=== PATIENT | male | born 2000 | race Hispanic/Latino ===

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

== ENCOUNTER 2024-06-04 10:32 | Emergency (ER) | payer SELFPAY ==
--- OUTSIDE RECORDS SUMMARY | 2024-06-04 10:35 | XMS REPORT | Continuity of Care Document ---
Author Name Unknown Address [address] [facility] [address] [place] [address] [facility] Address [address] [facility] [address] [place] [address] Care Team Providers Care Banquet Kitchen Supervisor Name Role Phone PCP, PATIENT DOES NOT HAVE A Primary Care Physic ambrosio Unavailable JUNG COPELAND Attending Clinician UnavailIMTIAZ Man Attending Clinician Unavailable Imtiaz Green MD Attending Clinician [phone] HAYDEE RICO Attending Clinician Unavailable Navin Phan MD Attending Clinician [phone] Karen Ann MD Attending Clinician [phone] KAREN ANN Attending Clinician Unavailable SERA PERKINS Attending Clinician UnavailSera Fowler MD Attending Clinician [phone] Only, Adc Test Attending Clinician Unavailable Jung Copeland MD Attending Clinician [phone] Doctor Unassigned, [place] Attending Clinician Carmine Cavanaugh Attending Clinician [phone] CARMINE SPARKS Attending Clinician Unavailable JUNG COPELAND Admitting Clinician UnavailIMTIAZ Man Admitting Clinician Unavailable Payers Payer Name Policy Type Policy Number Effective Date Expirati on Date Source [facility] [id number] 2020 00:00:00 Problems Condition Name Condition Details Condition Category Status Onset Date Resolution Date Last Treatment Date Treating Clinician Comments Source Rupture of anterior cruciate ligament of left knee, initial encounter Rupture of anterior cruciate ligament of left knee, initial encounter Disease Active 12-24 00:00: 00 Overview: Formattin g of this note might be different from the original. Added automatic ally from request for surgery [id number] [facility] Allergies, Adverse Reactions, Alerts Allergy Name Allergy Type Status Severity Reaction(s) Onset Date Inactive Date Treating Clinician Comments Source NO KNOWN ALLERGIE S Drug Class Active [facility] Social History Social Habit Start Date Stop Date Quantity Comments Source History SDOH Alcohol Comment [place] [facility] Alcohol Std Drinks [facility] History SDOH Alcohol Binge [facility] Alcoholic beverage intake 2023-09-27 00:00:00 2023-09-27 00:00:00 Lifetime non-drinker (finding) [facility] Exposure to SARS-CoV-2 (event) 2021-08-24 00:00:00 2021-09-03 15:00:00 Not sure [facility] History of Social function 2021-09-03 00:00:00 2021-09-03 00:00:00 [facility] Alcohol intake 2021-09-03 00:00:00 2021-09-03 00:00:00 Lifetime non-drinker (finding) [facility] Tobacco use and exposure 2020-10-22 00:00:00 2020-10-22 00:00:00 Smokeless tobacco non-user [facility] History SDOH Alcohol Frequency 2020-10-22 00:00:00 2020-10-22 00:00:00 1 [facility] Sex assigned at 2000 00:00:00 2000 00:00:00 [facility] Smoking Status Start Date Stop Date Source Never smoked tobacco [facility] Medications Ordered Medication Name Filled Medication Name Start Date Stop Date Current Medication? Ordering Clinician Indication Dosage Frequency Signature (SIG) Comments Components Source naproxen 500 mg tablet 09-03 00:00: 00 09-11 04:59 :00 No [id number] 500mg Take 1 tablet by mouth 2 (two) times daily with meals for 7 days. [facility] sulfamethox azole-trime thoprim (BACTRIM DS) 800-160 mg tablet 01-18 00:00: 00 Yes 1{tbl} Take 1 Tab by mouth every 12 (twelve) hours. [facility] Vital Signs Vital Name Observation Time Observation Value Comments S marialuisa Systolic blood pressure 2023-09-28 00:45:00 124 mm[Hg] [facility] Diastolic blood pressure 2023-09-28 00:45:00 81 mm[Hg] [facility] Heart rate 2023-09-28 00:45:00 69 /min [facility] Oxygen saturation in Arterial blood by Pulse oximetry 2023-09-28 00:45:00 100 /min [facility] Respiratory rate 2023-09-28 00:00:00 10 /min [facility] Body temperature 2023-09-27 22:25:00 37.17 Jessica [facility] Body height 2023-09-27 22:25:00 172.7 cm [facility] Body weight 2023-09-27 22:25:00 98.884 kg [facility] BMI 2023-09-27 22:25:00 33.15 kg/m2 [facility] Systolic blood pressure 2021-09-03 20:04:00 112 mm[Hg] [facility] Diastolic blood pressure 2021-09-03 20:04:00 74 mm[Hg] [facility] Heart rate 2021-09-03 20:04:00 67 /min [facility] Body temperature 2021-09-03 20:04:00 36.28 Jessica [facility] Respiratory rate 2021-09-03 20:04:00 18 /min [facility] Body height 2021-09-03 20:04:00 170.2 cm [facility] Body weight 2021-09-03 20:04:00 89.495 kg [facility] BMI 2021-09-03 20:04:00 30.90 kg/m2 [facility] Body mass index (BMI) [Percentile] Per age and sex 2021-09-03 20:04:00 96.44 % [facility] Oxygen saturation in Arterial blood by Pulse oximetry 2021-09-03 20:04:00 98 /min room air [facility] Procedures Procedure Date / Time Performed Performing Clinicia n Source CT CERVICAL SPINE WO CONTRAST 2023-09-27 22:59:00 Imtiaz Green [facility] CT HEAD WO CONTRAST 2023-09-27 22:59:00 Bartolo Green [facility] CBC WITH DIFF 2023-09-27 22:51:00 Imtiaz Green [facility] D-DIMER 2023-09-27 22:51:00 Imtiaz Green [facility] TROPONIN I 2023-09-27 22:51:00 Duran Imtiaz [facility] COMP. METABOLIC PANEL ([id number]) 2023-09-27 22:51:00 Imtiaz Green [facility] Encounters Start Date/Time End Date/Time Encounter Type Admission Type Attending Clinicians Care Facility Care Department Encounter ID Source 2021-03-10 11:45:38 Outpatient JUNG BYERS [facility] SOR [id number] [facility] 2021-03-09 16:23:27 Outpatient JUNG BYERS [facility] SOR [id number] [facility] 2021-03-06 14:12:40 Outpatient JUNG BYERS [facility] SOR [id number] [facility] 2023-09-27 17:25:00 2023-09-27 20:15:00 Emergency X IMTIAZ GREEN [facility] ERT [id number] [facility] 2023-09-27 17:25:00 2023-09-27 20:15:00 Emergency Imtiaz Green [facility] [id number] 350.1.13.10 4.2.7.2.686 [id number] [facility] 2022-02-23 11:10:00 2022-02-23 11:10:00 Outpatient HAYDEE WILLAMS [facility] [id number] [facility] 2021-09-03 15:30:00 2021-09-03 16:00:00 Office Visit Navin Phan [facility] [id number] 350.1.13.10 4.2.7.2.686 [id number] [facility] 2021-09-03 15:30:00 2021-09-03 15:30:00 Outpatient Liam ANN KAREN [facility] [id number] [facility] 2021-04-10 08:40:00 2021-04-10 08:40:00 Outpatient SERA KULKARNI [facility] [id number] [facility] 2021-04-10 08:05:54 2021-04-10 08:15:54 Office Visit Sera Perkins [facility] [id number] 350.1.13.10 4.2.7.2.686 [id number] [facility] 2021-03-13 09:30:00 2021-03-13 09:30:00 Outpatient JUNG BYERS [facility] [id number] [facility] 2021-03-06 14:17:13 2021-03-06 14:32:13 Laboratory Only Only, Adc Test Jung Copeland [facility] [id number] 350.1.13.10 4.2.7.2.686 [id number] [facility] 2021-03-06 08:45:00 2021-03-06 08:45:00 Outpatient JUNG BYERS [facility] [id number] [facility] 2021-03-02 00:00:00 2021-03-02 00:00:00 Prep For Surgery Jung Copeland [facility] [place] [id number] 350.1.13.10 4.2.7.2.686 [id number] [facility] 2021-03-02 00:00:00 2021-03-02 00:00:00 Telephone Jung Copeland [facility] [place] 1.84.114 350.1.13.10 4.2.7.2.686 [id number] [facility] 2021-02-20 09:41:09 2021-02-20 09:59:06 Office Visit Jung Copeland [facility] 1.840.114 350.1.13.10 4.2.7.2.686 [id number] [facility] 2021-02-20 09:45:00 2021-02-20 09:45:00 Outpatient R JUNG COPELAND [facility] [id number] [facility] 2021-02-20 00:00:00 2021-02-20 00:00:00 Orders Only Doctor Unassigned, [place] [facility] 1.840.114 350.1.13.10 4.2.7.2.686 [id number] [facility] 2021-02-19 08:45:00 2021-02-19 08:45:00 Outpatient R JUNG COPELAND [facility] [id number] [facility] 2021-02-12 00:00:00 2021-02-12 00:00:00 Telephone Jung Copeland [facility] [place] [id number] 350.1.13.10 4.2.7.2.686 [id number] [facility] 2021-01-05 00:00:00 2021-01-05 00:00:00 Telephone Jung Copeland [facility] [id number] 350.1.13.10 4.2.7.2.686 [id number] [facility] 2020-12-26 12:15:00 2020-12-26 12:15:00 Outpatient R JUNG COPELAND [facility] [id number] [facility] 2020-12-25 00:00:00 2020-12-25 00:00:00 Telephone Jung Copeland [facility] [id number] 350.1.13.10 4.2.7.2.686 [id number] [facility] 2020-12-24 00:00:00 2020-12-24 00:00:00 Orders Only Doctor Unassigned, [place] [facility] 1.2.840.114 350.1.13.10 4.2.7.2.686 [id number] [facility] 2020-12-22 00:00:00 2020-12-22 00:00:00 Orders Only Doctor Unassigned, [place] [facility] 1.2.840.114 350.1.13.10 4.2.7.2.686 [id number] [facility] 2020-12-18 10:43:34 2020-12-18 10:58:34 Office Visit Carmine Sparks [facility] 1.2.840.114 350.1.13.10 4.2.7.2.686 [id number] [facility] 2020-12-18 10:30:00 2020-12-18 10:30:00 Outpatient R CARMINE SPARKS [facility] [id number] [facility] 2020-12-18 00:00:00 2020-12-18 00:00:00 Orders Only Doctor Unassigned, [place] [facility] 1.2840.114 350.1.13.10 4.2.7.2.686 [id number] [facility] 2020-12-12 10:41:09 2020-12-12 12:12:19 Office Visit Jung Copeland [facility] 1.2840.114 350.1.13.10 4.2.7.2.686 [id number] [facility] 2020-12-12 10:45:00 2020-12-12 10:45:00 Outpatient R JUNG COPELAND [facility] [id number] [facility] 2020-12-08 00:00:00 2020-12-08 00:00:00 Telephone Carmine Sparks [facility] Surgical [facility] 1.2840.114 350.1.13.10 4.2.7.2.686 [id number] [facility] 2020-10-30 15:48:55 2020-10-30 23:59:00 Hospital Encounter Jung Copeland [facility] [id number] 350.1.13.10 4.2.7.2.686 [id number] [facility] 2020-10-30 00:00:00 2020-10-30 00:00:00 Outpatient R JUNG COPELAND [facility] [id number] [facility] 2020-10-29 00:00:00 2020-10-29 00:00:00 Orders Only Doctor Unassigned, [place] [facility] 1.20.114 350.1.13.10 4.2.7.2.686 [id number] [facility] 2020-10-23 00:00:00 2020-10-23 00:00:00 Telephone Imer Jung Warren [facility] Surgical [facility] [id number] 350.1.13.10 4.2.7.2.686 [id number] [facility] 2020-10-22 14:03:47 2020-10-22 14:18:47 Office Visit Carmine Sparks [facility] [id number] 350.1.13.10 4.2.7.2.686 [id number] [facility] 2020-10-22 14:15:00 2020-10-22 14:15:00 Outpatient R CARMINE SPARKS [facility] [id number] [facility] 2020-10-15 13:30:00 2020-10-15 13:30:00 Outpatient R JUNG COPELAND [facility] [id number] [facility] Results Test Description Test Time Test Comments Results Result Comments Source CT HEAD WO CONTRAST 23:51:39 EXAM: CT HEAD WO CONTRAST, CT CERVICAL SPINE WO CONTRAST HISTORY: 23 years-old Male; Head trauma, moderate-severe COMPARISON: None TECHNIQUE: ?CT imaging of the head and cervical spine was obtained withoutIV contrast. Coronal and sagittal reformats were constructed. FINDINGS: HEAD: The ventricles and cerebral sulci are normal in caliber and configuration.No hydrocephalus, midline shift or pathological extra-axial fluidcollection is present. The basal cisterns are unremarkable. There is no acute intracranial hemorrhage or significant mass effect. Noparenchymal attenuation abnormality is seen. The julien-white matterdifferentiation is preserved. The mastoid air cells and paranasal air sinuses are clear. The calvariumand central skull base are unremarkable. CERVICAL SPINE: Normal cervical lordosis is preserved The vertebral bodies are normal inheight and in normal alignment. No facet fracture or subluxation ispresent. The craniocervical junction is intact. The prevertebral softtissues are unremarkable. Partially imaged small focus of gas at the right cervical superficial softtissue likely indicates iatrogenic post injection air (2:82). [facility] CT CERVICAL SPINE WO CONTRAST 23:51:39 EXAM: CT HEAD WO CONTRAST, CT CERVICAL SPINE WO CONTRAST HISTORY: 23 years-old Male; Head trauma, moderate-severe COMPARISON: None TECHNIQUE: ?CT imaging of the head and cervical spine was obtained withoutIV contrast. Coronal and sagittal reformats were constructed. FINDINGS: HEAD: The ventricles and cerebral sulci are normal in caliber and configuration.No hydrocephalus, midline shift or pathological extra-axial fluidcollection is present. The basal cisterns are unremarkable. There is no acute intracranial hemorrhage or significant mass effect. Noparenchymal attenuation abnormality is seen. The julien-white matterdifferentiation is preserved. The mastoid air cells and paranasal air sinuses are clear. The calvariumand central skull base are unremarkable. CERVICAL SPINE: Normal cervical lordosis is preserved The vertebral bodies are normal inheight and in normal alignment. No facet fracture or subluxation ispresent. The craniocervical junction is intact. The prevertebral softtissues are unremarkable. Partially imaged small focus of gas at the right cervical superficial softtissue likely indicates iatrogenic post injection air (2:82). [facility]
[2024-06-04] MEDS ORDERED: IBUPROFEN 400 MG TAB ONE (11:07)
[2024-06-04 11:40] LABS: SARS-CoV-2 Antigen CONTROL BLUE LINE VIS/BG OK; SARS-CoV-2 Antigen Rapid Res Negative (Negative)
--- NOTE | 2024-06-04 11:45 | EDPHYS ---
Physician Documentation [facility] Name: Aaron Velazquez Age: 23 yrs Sex: Male : 2000 Arrival Date: 06/04/2024 Time: 10:32 Bed DIS1 Private MD: ED Physician Nba Briggs HPI: 06/04 11:24 This 23 yrs old Male presents to ER via Wheelchair with complaints of Fever, dr5 Flu Symptoms, Hurts All Over. 11:24 The patient reports fever, that was measured at 101 degrees Fahrenheit. Onset: The dr5 symptoms/episode began/occurred yesterday. Patient is a 23-year-old male with no past med history coming in with fever, body aches that started yesterday. Mother gave Tylenol prior to arrival today. Patient came in by wheelchair due to unable to walk from pain to his lower legs. Patient has not been drinking water due to fever. Patient denies any sick contacts.. Historical: - Allergies: 11:16 No Known Allergies; jl7 - Home Meds: 11:16 None [Active]; jl7 - PMHx: 11:16 None; jl7 - PSHx: 11:16 None; jl7 - Immunization history:: Adult Immunizations unknown. - Infectious Disease History:: Denies. - Social history:: Smoking status: Patient denies any tobacco usage or history of. ROS: 11:24 Constitutional: as per hpi dr5 Exam: 11:24 Constitutional: This is a well developed, well nourished patient who is awake, alert, dr5 and in no acute distress. Head/Face: Normocephalic, atraumatic. Eyes: Pupils equal round and reactive to light, extra-ocular motions intact. Lids and lashes normal. Conjunctiva and sclera are non-icteric and not injected. Cornea within normal limits. Periorbital areas with no swelling, redness, or edema. Neck: Trachea midline, no thyromegaly or masses palpated, and no cervical lymphadenopathy. Supple, full range of motion without nuchal rigidity, or vertebral point tenderness. No Meningismus. Chest/axilla: Normal chest wall appearance and motion. Nontender with no deformity. No lesions are appreciated. Cardiovascular: Regular rate and rhythm with a normal S1 and S2. Normal PMI, no JVD. No pulse deficits. Respiratory: Lungs have equal breath sounds bilaterally, clear to auscultation. No rales, rhonchi or wheezes noted. No increased work of breathing, no retractions or nasal flaring. Back: No spinal tenderness. No costovertebral tenderness. Full range of motion. Skin: Warm, dry with normal turgor. Normal color with no rashes, no lesions, and no evidence of cellulitis. MS/ Extremity: Pulses equal, no cyanosis. Neurovascular intact. Full, normal range of motion. Neuro: Awake and alert, GCS 15, oriented to person, place, time, and situation. Cranial nerves II-XII grossly intact. Motor strength 5/5 in all extremities. Sensory grossly intact. Cerebellar exam normal. Normal gait. 11:24 ENT: External ear(s): are unremarkable, Ear canal(s): are normal, TM's: are normal, no evidence of bulging, no dullness, no erythema, Nose: is normal, Mouth: is normal, Posterior pharynx: is normal, Vital Signs: 11:13 BP 149 / 78; Pulse 88; Resp 15; Temp 100.4; Pulse Ox 97% ; Weight 101.15 kg; Height 5 jl7 ft. 8 in. ; Pain 5/10; 12:10 Temp 98.6; kb3 11:13 Body Mass Index 33.91 (101.15 kg, 172.72 cm) jl7 11:13 Pain Scale: Adult jl7 MDM: 10:46 Medical Screening Exam initiated dr5 13:36 Differential diagnosis: viral Infection, bacterial infection, Influenza, COVID. Data dr5 reviewed: vital signs, nurses notes, lab test result(s), Flu: positive. I considered the following discharge prescriptions or medication management in the emergency department Medications were administered in the Emergency Department. See MAR. Care significantly affected by the following Social Determinants of Health: Poor access to healthcare and/or lack of insurance, Poor access to transportation, Problems related to employment. Counseling: I had a detailed discussion with the patient and/or guardian regarding the historical points, exam findings, and any diagnostic results supporting the discharge/admit diagnosis, the presence of at least one elevated blood pressure reading (>120/80) during this emergency department visit, lab results, the need for outpatient follow up, for definitive care, a family practitioner, to return to the emergency department if symptoms worsen or persist or if there are any questions or concerns that arise at home. Medication response: ibuprofen administration has improved the patient's temperature, ibuprofen administration has improved the patient's pain. ED course: Patient found to have flu A. Will prescribe Tamiflu to help with symptoms. Recommended alternating Tylenol and Motrin as needed for pain and fever. Work note given. Increase hydration. All questions answered. Patient is looking much better on discharge.. 06/04 10:56 Order name: SARS RAPID; Complete Time: 11:44 dr5 06/04 10:56 Order name: Influenza Screen (a \T\ B); Complete Time: 11:44 dr5 06/04 11:03 Order name: Strep dr5 06/04 11:43 Order name: Throat Culture EDNH Administered Medications: 11:13 Drug: Ibuprofen PO 800 mg PO once Route: PO; jl7 12:10 Follow up: Response: Temperature is decreased; Pain is decreased kb3 Disposition Summary: 06/04/24 11:44 Discharge Ordered Notes: Location: Home dr5 Condition: Stable dr5 Diagnosis - Influenza due to identified novel influenza A virus dr5 Followup: dr5 - With: Emergency Department - When: As needed - Reason: Worsening of condition Followup: dr5 - With: Private Physician - When: 1 - 2 days - Reason: Recheck today's complaints, Continuance of care, Re-evaluation by your physician Discharge Instructions: - Discharge Summary Sheet dr5 - Influenza, Adult dr5 Forms: - Work release form dr5 - Medication Reconciliation Form dr5 - Patient Portal Instructions dr5 - Leadership Thank You Letter dr5 Prescriptions: - Ibuprofen 800 mg Oral Tablet - take 1 tablet ORAL route every 12 hours As needed take with food; 20 tablet; dr5 Refills: 0, Product Selection Permitted - Tamiflu 75 mg Oral capsule - take 1 tablet ORAL route every 12 hours for 5 days; 10 tablet; Refills: 0, dr5 Product Selection Permitted Addendum: 06/05/2024 14:19 Co-signature as Attending Physician, Nba Briggs MD I agree with the assessment and c patel plan of care. Signatures: Dispatcher [employer] Nba Rodriguez MD MD cha Leal, Jahala, RN RN jl7 Davi Barajas, GLASS CLEANING MACHINE TENDER-C GLASS CLEANING MACHINE TENDER-Cdr5 Sera Chilel RN kb3 Corrections: (The following items were deleted from the chart) 06/04 10:57 10:57 SARS-COV-2 Antigen Rapid+I.LAB.GENNARO ordered. EDMS EDMS 10:57 10:57 Influenza Screen (A \T\ B)+BA.LAB.GENNARO ordered. EDMS EDMS
--- NOTE | 2024-06-04 11:45 | ER ---
Nurse's Notes [facility] Name: Aaron Velazquez Age: 23 yrs Sex: Male : 2000 Arrival Date: 06/04/2024 Time: 10:32 Bed DIS1 Private MD: Diagnosis: Influenza due to identified novel influenza A virus Presentation: 06/04 11:13 Chief complaint: Patient states: Fever, body aches x 2 days. Coronavirus screen: Client jl7 presents with at least one sign or symptom that may indicate coronavirus-19. Standard/surgical mask placed on the client. Ebola Screen: No symptoms or risks identified at this time. Initial Sepsis Screen: Does the patient meet any 2 criteria? No. Patient's initial sepsis screen is negative. Does the patient have a suspected source of infection? No. Patient's initial sepsis screen is negative. Risk Assessment: Do you want to hurt yourself or someone else? Patient reports no desire to harm self or others. Onset of symptoms was June 03, 2024. 11:13 Method Of Arrival: Wheelchair [facility] 11:13 Acuity: YEYO 4 jl7 Triage Assessment: 11:16 General: Appears in no apparent distress. uncomfortable, ill, Behavior is calm, jl7 cooperative, appropriate for age. Pain: Complains of pain in body aches Pain currently is 5 out of 10 on a pain scale. Neuro: Level of Consciousness is awake, alert, obeys commands, Oriented to person, place, time, situation. Cardiovascular: Patient's skin is warm and dry. Respiratory: Airway is patent Respiratory effort is even, unlabored, Respiratory pattern is regular, symmetrical. Derm: Skin is pink, warm \T\ dry. Historical: - Allergies: 11:16 No Known Allergies; jl7 - Home Meds: 11:16 None [Active]; jl7 - PMHx: 11:16 None; jl7 - PSHx: 11:16 None; jl7 - Immunization history:: Adult Immunizations unknown. - Infectious Disease History:: Denies. - Social history:: Smoking status: Patient denies any tobacco usage or history of. Screenin:[address] [facility] ED Fall Risk Assessment (Adult) History of falling in the last 3 months, kb3 including since admission No falls in past 3 months (0 pts) Confusion or Disorientation No (0 pts) Intoxicated or Sedated No (0 pts) Impaired Gait No (0 pts) Mobility Assist Device Used No (0 pt) Altered Elimination No (0 pt) Score/Fall Risk Level 0 - 2 = Low Risk Oriented to surroundings. Abuse screen: Denies threats or abuse. Denies injuries from another. Nutritional screening: No deficits noted. Tuberculosis screening: No symptoms or risk factors identified. Assessment: 12:10 Reassessment: No changes from previously documented assessment. kb3 12:10 General: Appears in no apparent distress. uncomfortable, ill, Behavior is calm, kb3 cooperative. 12:10 Pain: Complains of pain in head, chest, right arm, left arm, right leg and left leg kb3 Pain currently is 2 out of 10 on a pain scale. Vital Signs: 11:13 BP 149 / 78; Pulse 88; Resp 15; Temp 100.4; Pulse Ox 97% ; Weight 101.15 kg; Height 5 jl7 ft. 8 in. ; Pain 5/10; 12:10 Temp 98.6; kb3 11:13 Body Mass Index 33.91 (101.15 kg, 172.72 cm) jl7 11:13 Pain Scale: Adult jl7 ED Course: 10:36 Patient arrived in ED. sj2 10:38 [facility]ajas [facility]C [facility] ss 10:39 Nba Briggs MD is Attending Physician. ss 11:13 Adin Ortega, RUBEN is Primary Nurse. jl7 11:16 Triage completed. jl7 11:16 Arm band placed on right wrist. Patient placed in waiting room, Patient notified of jl7 wait time. 12:10 Patient has correct armband on for positive identification. Provided Education on: kb3 Discharge. rest. increased oral fluids, tylenol/motrin as needed. 12:10 No provider procedures requiring assistance completed. Patient did not have IV access kb3 during this emergency room visit. Administered Medications: 11:13 Drug: Ibuprofen PO 800 mg PO once Route: PO; jl7 12:10 Follow up: Response: Temperature is decreased; Pain is decreased kb3 Medication: 12:10 VIS not applicable for this client. kb3 Outcome: 11:44 Discharge ordered by . dr5 12:10 Discharged to home ambulatory, with family, kb3 12:10 Condition: stable 12:10 Discharge instructions given to patient, family, Instructed on discharge instructions, follow up and referral plans. medication usage, Demonstrated understanding of instructions, follow-up care, medications, 12:39 Patient left the ED. kb3 Signatures: Denise Lombardo, RN RN ss Adin Ortega RN RN jl7 Sera Chilel RN RN kb3 Logan Mireles sj2 Davi Barajas, MULTIPLE DRUM SANDER HELPER-C MULTIPLE DRUM SANDER HELPER-[id number]
[2024-06-04 14:40] VITALS: BP 149/78; O2SAT 97
[2024-06-04 14:41] VITALS: TEMP 98.6
== END 2024-06-04 12:39 | disposition home or self-care (01) ==
LOC: ER 10:32
DX: J10.1 Influenza due to other identified influenza virus with other respiratory manifestations (principal); Z11.52 Encounter for screening for COVID-19
CPT/HCPCS: 36415; 87070; 87081; 87804; 87811; 99283